=== PATIENT | female | born 1955 | race Caucasian/White ===

== ENCOUNTER 2019-01-01 19:00 | Outpatient (CLI) | payer OTHER ==
[2013-08-22 06:52] VITALS: BMI 28.4
[~2019-01-01 19:00] MED LIST: BENICAR HCT 40-1 TAB PO; CATAFLAM50 MG PO; PREMPRO 0.45-1.1 TAB PO; SYMBICORT 16010.2 GM INH; TOPROL XL50 MG PO
== END 2019-01-01 23:59 | disposition home or self-care (01) ==
LOC: D.MAMMO 19:00
PROVIDERS: ATTEND Nurse Practitioner
DX: Z12.31 Encounter for screening mammogram for malignant neoplasm of breast (principal)

== ENCOUNTER 2020-08-12 16:09 | Outpatient (CLI) | payer MEDICARE, OTHER ==
[2013-08-22 06:52] VITALS: BMI 28.4
== END 2020-08-12 23:59 | disposition home or self-care (01) ==
LOC: D.MAMMO 16:09
PROVIDERS: ATTEND Family Medicine
DX: Z12.31 Encounter for screening mammogram for malignant neoplasm of breast (principal)